=== PATIENT | female | born 1990 | race Asian ===

== ENCOUNTER 2022-07-23 17:57 | Inpatient (IN) ==
[2022-07-23] MEDS ORDERED: Lactated Ringers 1000 ml BAG 1,000 ML IV ONE (18:57)
[2022-07-23] MEDS ORDERED: Buffered Lidocaine 1% SYRIN 1 ml INTRADERM ONE (18:57)
[2022-07-23] MEDS ORDERED: Promethazine INJ(RESTRICTED) 25 MG/ML 1 ml VIAL IV PRN (18:57)
[2022-07-23] MEDS ORDERED: Nalbuphine 10 MG/ML 1 ML VIAL IV PRN (18:57)
[2022-07-23] MEDS ORDERED: miSOPROStol 100 mcg TAB VAGINAL ONE (18:57)
[2022-07-23] MEDS ORDERED: Lactated Ringers 1000 ml BAG 1,000 ML IV SCH (19:00)
[2022-07-23] MEDS ORDERED: miSOPROStol 100 mcg TAB ONE (19:30)
[2022-07-23 20:43] LABS: Urine Benzodiazepine Screen None Detected (None Detect); Urine Cannabinoids Screen None Detected (None Detect); Urine Opiates Screen None Detected (None Detect)
[2022-07-23 22:29] LABS: ABS Basophils 0.1 10^3/uL (0.0-0.1); ABS Eosinophils 0.1 10^3/uL (0.0-0.5); ABS Lymphocytes 1.9 10^3/uL (1.0-4.8); ABS Monocytes 0.7 10^3/uL (0.0-0.9); ABS Neutrophils 5.7 10^3/uL (1.5-7.6); ABS Nucleated RBC 0.01 10^3/ul; Eosinophil % 0.7 %; Hematocrit 36.6 % (35-45); Hemoglobin 12.7 g/dL (11.5-14.3); Lymphocyte % 23.1 %; Mean Corpuscular Hemoglobin 30.1 pg (27-33); Mean Corpuscular Hgb Conc 34.7 g/dL (31-36); Mean Platelet Volume 8.7 fL (7.5-11.2); Nucleated Red Blood Cells % 0.2 /100 WBC (0.0-0.4); Platelet Count 202 10^3/uL (150-450); Red Cell Distribution Width 12.9 % (12-17); White Blood Count 8.5 10^3/uL (3.8-11.8)
[2022-07-23] MEDS ORDERED: Bupivacaine 0.25% SDV PF 10 ML VIAL INJ ONE ×2 (22:53→22:57)
[2022-07-23] MEDS ORDERED: OBEPIDURAL (200 ML) 200 ML EPIDURAL ONE (22:54)
[2022-07-23] MEDS ORDERED: Lidocaine 2% PF 5 ML VIAL INJ ONE (23:00)
[2022-07-23] MEDS ORDERED: Phenylephrine 40 mcg/mL 10mL (400mcg) SYRINGE IV PUSH PRN ×2 (23:32)
[2022-07-24] MEDS ORDERED: Oxytocin in LR 20,000 MILLI.UNIT/1,000 ML BAG IV ONE (01:19)
[2022-07-24] MEDS ORDERED: Dibucaine 1% OINT 28.35 GM TUBE PR PRN (01:28)
[2022-07-24] MEDS ORDERED: Glycerin ADULT 2.4 gm SUPP PR PRN (01:28)
[2022-07-24] MEDS ORDERED: Witch Hazel PAD JAR TOPICAL PRN (01:28)
[2022-07-24] MEDS ORDERED: Oxytocin in LR 20,000 MILLI.UNIT/1,000 ML BAG IV SCH (01:30)
[2022-07-24 01:37] LABS: Urine Appearance Cloudy; Urine Bilirubin Negative (Negative); Urine Blood 3+ (Negative); Urine Color Yellow; Urine Glucose Negative (Negative); Urine Ketones Negative (Negative); Urine Nitrite Negative (Negative); Urine Protein 1+(30 mg/dL) (Negative); Urine Urobilinogen Negative (Negative)
[2022-07-24] MEDS ORDERED: Lactated Ringers 1000 ml BAG 1,000 ML IV SCH (02:00)
[2022-07-24 02:29] LABS: Urine Bacteria Absent (Absent); Urine Red Blood Cell 3+(>10/hpf) (Absent); Urine Squamous Epithelial Cell Present (Absent); Urine White Blood Cell Trace(0-5/hpf) (Absent)
[2022-07-25 07:11] LABS: ABS Eosinophils 0.1 10^3/uL (0.0-0.5); ABS Lymphocytes 2.5 10^3/uL (1.0-4.8); ABS Monocytes 0.8 10^3/uL (0.0-0.9); ABS Neutrophils 5.5 10^3/uL (1.5-7.6); Eosinophil % 1.3 %; Hematocrit 36.6 % (35-45); Hemoglobin 12.4 g/dL (11.5-14.3); Mean Corpuscular Hemoglobin 29.7 pg (27-33); Mean Corpuscular Hgb Conc 33.7 g/dL (31-36); Mean Platelet Volume 8.5 fL (7.5-11.2); Platelet Count 185 10^3/uL (150-450); Red Blood Count 4.17 10^6/uL (3.63-4.92); Red Cell Distribution Width 13.2 % (12-17); White Blood Count 9.1 10^3/uL (3.8-11.8)
[2022-07-25 11:52] VITALS: BP 105/72
== END 2022-07-25 13:59 | disposition home or self-care (01) | DRG 807 ==
LOC: MCHOBOUT 17:57 → MCHOB 19:02
PROVIDERS: ADMIT Obstetrics & Gynecology; ATTEND Obstetrics & Gynecology